=== PATIENT | female | born 1960 | race Caucasian/White ===

== ENCOUNTER 2020-11-15 15:13 | Emergency (ER) | payer OTHER ==
[~2020-11-15] VITALS: Ht 160 cm; Wt 75.0 kg
[2020-11-15 15:19] VITALS: BP 118/67
[2020-11-15] MEDS ORDERED: ketorolac trometh. 30mg/ml inj. IM ONE (16:00)
[2020-11-15] MEDS ORDERED: CYCL-1 PO (16:06)
[2020-11-15] MEDS ORDERED: METH4TAB81 PO (16:06)
== END 2020-11-15 16:24 | disposition home or self-care (01) ==
LOC: ER 15:13
DX: M54.41 Lumbago with sciatica, right side (principal); I10 Essential (primary) hypertension; Z72.89 Other problems related to lifestyle; Z98.890 Other specified postprocedural states; Z79.899 Other long term (current) drug therapy
CPT/HCPCS: 96372; 99283; J1885